=== PATIENT | male | born 1990 | race African-American/Black ===

== ENCOUNTER 2017-03-18 09:30 | Emergency (ER) | payer OTHER ==
[~2017-03-18] VITALS: Ht 190.5 cm; Wt 79.4 kg
[~2017-03-18 09:30] MED LIST: Tetanus/Diptheria/Pertussis Vaccine 0.5ml Syr IM ONE; Tylenol #3 tab (300mg/30mg) PO ONE
[2017-03-18] MEDS ORDERED: NKM (09:32)
[2017-03-18 09:45] VITALS: BP 136/74
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
[2017-03-18] MEDS ORDERED: AMOXICILLIN500 MG ORAL (11:13)
[2017-03-18] MEDS ORDERED: ACETAMINOPHEN-1 EAC1 ORAL (11:13)
[2017-03-18 11:47] VITALS: BP 136/74
--- NOTE | 2017-03-18 21:48 | Diagnostic Imaging Report ---
Indication: Head trauma. Headache Technique: Contiguous 5 mm thick transaxial imaging of the head obtained in a Siemens Sensation [address] scanner. Soft tissue and bone windows generated. Automatic Exposure Control was utilized. Total Dose length Product (DLP): [address] Dose Index Volume (CTDIvol): 70.38 mGy Comparison: none Findings: The size and configuration of the cortical sulci, basal cisterns, and ventricles are within normal limits for age. There is no mass effect, midline shift, or edema identified. There is no evidence of acute hemorrhage or abnormal intra-axial or extra-axial fluid collections. The bones and soft tissues are unremarkable. Impression: No mass effect, edema or acute bleed. Significant, mandible and left orbital fractures are present. Please refer to the maxillofacial CT report The CT scanner at [facility] is accredited by the [employer] and the scans are performed using dose optimization techniques as appropriate to a performed exam including Automatic Exposure control.
--- NOTE | 2017-03-18 21:48 | Diagnostic Imaging Report ---
Indication: Facial orbital trauma Technique: Continuous helical transaxial imaging of the maxillofacial structures obtained without intravenous contrast administration. Coronal 2-D reformats were also obtained. Study obtained in a Siemens sensation [address] Automatic Exposure Control was utilized. Total Dose length Product (DLP): [address] Dose Index Volume (CTDIvol): 0.15, 28.19 mGy Comparison: None Findings: Acute nondisplaced fracture of the right mandibular ramus demonstrated. A second fracture of the body of the right mandible also demonstrated. This fracture extends into the root of the right posterior most bicuspid. Soft tissue swelling is present. There is an acute fracture of the floor of the left orbit with minimal displacement. Air blood level noted within the left maxillary sinus. There is mild herniation of intraorbital fat associated with the fracture. The inferior rectus muscle does not appear involved. Please correlate clinically for muscle entrapment. There is no retrobulbar hemorrhage or proptosis identified. The retro-orbital fat is normal. Periorbital soft tissue swelling and nasal soft tissue swelling noted as well as soft tissue swelling over the left frontal scalp region. There is an acute nondisplaced fracture of the nasal bone. The nasal septum is grossly intact. Bilateral darryn bullosa noted incidentally. The mastoids are clear bilaterally. TMJs are unremarkable. IMPRESSION: Acute fracture of the left orbital floor. Correlate clinically for muscle entrapment. Acute fractures of the right mandibular ramus and body. Acute nasal fracture. Facial and orbital soft tissue contusion. The CT scanner at [facility] is accredited by the [employer] and the scans are performed using dose optimization techniques as appropriate to a performed exam including Automatic Exposure control.
== END 2017-03-18 11:48 ==
LOC: EDBD 09:30 → EMR 09:55
DX: S02.2XXA Fracture of nasal bones, initial encounter for closed fracture (principal); S02.80XA Fracture of other specified skull and facial bones, unspecified side, initial encounter for closed fracture; Y04.2XXA Assault by strike against or bumped into by another person, initial encounter; Y92.512 Supermarket, store or market as the place of occurrence of the external cause; Z23 Encounter for immunization
CPT/HCPCS: 70450; 70486; 90471; 90715; 99284